=== PATIENT | female | born 1970 | race Caucasian/White ===

== ENCOUNTER → 2016-10-24 | Outpatient (CLI) | payer BC ==
[~2016-10-24] MED LIST: BIRTH CONTROL PO; COLACE100 MG PO; FERROUS SULFAT325 M2 PO; IBUPROFEN600 MG PO; NORCO 10-325 T1 EACH PO; VITAMIN D5000 UNIT PO; ZYRTEC10 MG PO
[2016-10-24 17:39] LABS: HEMOGLOBIN 7.6 gm/dl (12.3-15.3); RED BLOOD COUNT 3.81 M/UL (4.00-5.10); WHITE BLOOD COUNT 5.8 K/UL (4.5-11.0)
[2016-10-24 18:21] LABS: BUN/CREATININE RATIO 17 (0-10)
== END ==
LOC: LAB 17:15
PROVIDERS: Internal Medicine
DX: E55.9 Vitamin D deficiency, unspecified (principal)
CPT/HCPCS: 36415; 80053; 80061; 84443; 85025